=== PATIENT | male | born 1965 | race Caucasian/White ===

== ENCOUNTER 2017-12-21 11:22 | Inpatient (IN) | payer OTHER ==
[~2017-12-21] VITALS: Ht 177.8 cm; Wt 75.6 kg
[2017-12-21] VITALS (16 sets, daily range): BP systolic 113–133; BP diastolic 53–85; Ht 177.8 cm; Wt 75.6 kg
--- NOTE | ~2017-12-21 | HEMODYNAMI ---
PATIENT:FRANK LCUIA MEDICAL RECORD: [id number] : 61 LOCATION:[facility] ADMISSION DATE: 12/21/17 Generatedon:12/21/201712:58 Patient name: FRANK LUCIA Patient #: [id number] SSN: : 1965 Date of study: 12/21/2017 Page: Of Hemodynamic Procedure Report Patient Data Patient Demographics Procedure consent was obtained First Name: FRANK Gender: Male Last Name: REA : 1965 Patient #: [id number] Age: 52 year(s) Race: Additional ID: [id number] Contact details [address]: [address] [place] [address] [address] State: [place] City: [place] Zip code: [address] Admission Admission Data Admission Date: 12/21/2017 Admission Time: 11:22 Procedure Procedure Types Cath Procedure Diagnostic Procedure LHC LHC w/Coronaries Sedation Charges Moderate Sedation up to 30 minutes PCI Procedure AMI/SVG/WOOL SHEARER PTCA or Stent AMI-BMS/PUJA Initial Procedure Description Procedure Date Procedure Date: 12/21/2017 Procedure Start Time: 12:21 Procedure End Time: 12:53 Procedure Staff Name Function Fabiano Mendoza MD Performing Physician Rolanda Zepeda RT Monitor Lakesha Ferro RT Scrub Chante Garcia RN Nurse Procedure Data Cath Procedure Fluoroscopy Diagnostic fluoroscopy Total fluoroscopy Time: 7.1 time: 7.1 min min Diagnostic fluoroscopy Total fluoroscopy dose: dose: 1131 mGy 1131 mGy Contrast Material Contrast Material Type Amount (ml) Isovue 300 171 Entry Location Entry Primary Successful Side Size Upsize Upsize Entry Closure Succes sful Closure Location (Fr) 1 (Fr) 2 (Fr) Remarks Device Remarks Femoral Right 6 Fr Exoseal artery Short Estimated blood loss: 5 ml Diagnostic catheters Device Type Used For End Catheter Placement MULTIPACK JL 4.0 5Fr Left Coronary catheter Angiography MULTIPACK 3DRC 5Fr Right Coronary catheter Angiography MULTIPACK Pigtail 5 Fr LV Angiography catheter Procedure Complications No complications Procedure Medications Medication Administration Route Dosage Benadryl I.V. 50 mg Oxygen NC 2 l/min Lidocaine 2% added to field 20 Heparin Flush Bag added to field 2 bags (1000units/500ml NS) 0.9% NaCl I.V. 100 ml/hr Versed I.V. 1 mg Fentanyl I.V. 50 mcg Versed I.V. 1 mg Fentanyl I.V. 50 mcg Versed I.V. 1 mg Heparin Bolus I.V. 7500 units Nitroglycerin IC/IA I.C. 100 mcg Versed I.V. 1 mg Integrilin (Bolus I.V. 6.8 ml 2mg/ml) Fentanyl I.V. 50 mcg Fentanyl I.V. 50 mcg Brilinta P.O. 180 mg Hemodynamics Rest Heart Rate: 66 (bpm) Pressure Samples Time Site Value (mmHg) Purpose Heart Use Rate(bpm) 12:46 LV 138/-12,9 Snapshot 87 Gradients Valve Time Site Site Mean SEP/DFP Peak To Heart Use 1 2 (mmHg) (sec/min) Peak Rate (mmHg) (bpm) Aortic 12:47 LV AO 87 Snapshots Pre Cath Intra NCS Post Cath Vital Signs Time Heart Resp SPO2 etCO2 NIBP (mmHg) Rhythm Pain Status Sedation Rate (ipm) (%) (mmHg) Level (bpm) 12:14:37 62 13 99 33.8 156/93(116) NSR w/ ST 5 (11) , 10(A) Elevation Very distressing 12:19:24 58 14 100 21.8 154/92(124) NSR w/ ST 5 (11) , 10(A) Elevation Very distressing 12:24:06 72 14 100 32.4 147/87(115) NSR w/ ST 0 (11) , No 9(A) Elevation pain 12:28:51 79 14 99 40.6 151/85(126) NSR w/ ST 0 (11) , No 9(A) Elevation pain 12:33:36 91 15 100 41.4 143/86(98) NSR w/ ST 0 (11) , No 9(A) Elevation pain 12:38:16 90 14 100 36.9 153/103(123) NSR w/ ST 0 (11) , No 9(A) Elevation pain 12:42:59 104 13 100 33.8 141/84(111) NSR w/ ST 0 (11) , No 9(A) Elevation pain 12:47:37 86 15 100 36.8 135/87(109) NSR w/ ST 0 (11) , No 9(A) Elevation pain 12:52:20 77 14 100 38.3 133/83(107) NSR w/ ST 0 (11) , No 10(A) Elevation pain Medications Time Medication Route Dose Verified Delivered Reason Notes Effectiveness by by 12:14:37 Benadryl I.V. 50 mg Fabiano Buffie used for Vipin Garcia RN procedure 12:16:37 Oxygen NC 2 Fabiano Buffie used for l/min Vipin Garcia RN procedure 12:17:25 Lidocaine 2% added 20ml Fabiano Fabiano for local to vial Vipin Mendoza MD anesthetic field 12:17:32 Heparin Flush added 2 Fabiano Fabiano used for Bag to bags Vipin Mendoza MD procedure (1000units/500ml field NS) 12:17:39 0.9% NaCl I.V. 100 Fabiano Buffie Per physician ml/hr Vipin Garcia RN 12:18:04 Fentanyl I.V. 50 Fabiano Buffie for sedation mcg Vipin Garcia RN 12:18:58 Versed I.V. 1 mg Fabiano Buffie for sedation Vipin Garcia RN 12:22:01 Versed I.V. 1 mg Fabiano Buffie for sedation Vipin Garcia RN 12:22:04 Fentanyl I.V. 50 Fabiano Buffie for sedation mcg Vipin Garcia RN 12:27:21 Versed I.V. 1 mg Fabiano Buffie for sedation Vipin Garcia RN 12:27:33 Fentanyl I.V. 50 Fabiano Buffie for sedation mcg Vipin Garcia RN 12:28:26 Heparin Bolus I.V. 7500 Fabiano Buffie for verifi ed units Vipin Garcia RN anticoagulation with dr mendoza 12:40:31 Nitroglycerin I.C. 100 Fabiano Fabiano for IC/IA mcg Vipin Mendoza MD vasodilation 12:43:45 Integrilin I.V. 6.8 Fabiano Buffie for wasted (Bolus 2mg/ml) ml Vipin Garcia RN antiplatelet 3.2 ml therapy of vial 12:45:05 Versed I.V. 1 mg Fabiano Fabiano for sedation Vipin Mendoza MD 12:46:13 Fentanyl I.V. 50 Fabiano Sharif for sedation mcg Vipin Garcia RN 12:51:59 Brilinta P[address]O. 180 Fabiano Sharif for mg Vipin Garcia RN antiplatelet therapy Procedure Log Time Note 12:01:11 Informed consent obtained and on chart 12:01:13 Diagnostic Cath Status : Elective 12:01:38 Lakesha Ferro RT(R) sent for patient. Start room use. 12:01:39 Time tracking: Regular hours 12:01:43 Plan of Care:Hemodynamics will remain stable., Cardiac rhythm will remain stable., Comfort level will be maintained., Respiratory function will remain adequate., Patient/ family verbilizes understanding of procedure., Procedure tolerated without complication., Recovers from procedure without complications.. 12:13:33 Patient received from ED to CCL 1 Alert and oriented. Tansferred to table in Supine position. 12:13:37 Patient arrived from ED to CCL 1. Patient remains on bed/stretcher for procedure. 12:13:40 Warm blankets applied, and thaddeus hugger turned on for patient comfort. 12:13:41 Correct patient and procedure confirmed by team. 12:13:42 ECG and BP/O2 sat monitors applied to patient. 12:13:42 Vital chart was started 12:13:43 Baseline sample Acquired. 12:13:55 Rhythm: sinus rhythm , w/ ST elevation 12:13:57 Full Disclosure recording started 12:14:14 Physician arrived 12:14:14 --------ALL STOP TIME OUT------ 12:14:18 Final Timeout: patient, procedure, and site verified with staff and physician. All members of the team are in agreement. 12:14:37 Benadryl 50 mg I.V. was administered by Chante Garcia RN; used for procedure; 12:14:46 H&P Date Dictated: 12/21/2017 New H&P dictated by physician.. 12:14:47 Pre-procedure instructions explained to patient. 12:14:47 Pre-op teaching completed and patient verbalized understanding. 12:14:51 Family in waiting room. 12:14:53 Patient NPO since Breakfast. 12:14:55 Is the patient allergic to Iodine/contrast media? No. 12:14:56 Was the patient premedicated? No 12:15:02 Is patient on blood thinner?Yes 12:15:05 Patient diabetic? No. 12:15:07 Previous problem with sedation/anesthesia? No ? 12:15:28 ACC The patient was administered the following blood thiners within the last 24 hours: ACCAspirin 12:15:33 Snore? Yes 12:15:34 Sleep apnea? No 12:15:35 Deviated septum? No 12:15:36 Opens mouth fully? Yes 12:15:37 Sticks out tongue? Yes 12:15:38 Airway obstruction? No ? 12:16:06 Dentures? No ? 12:16:12 Patient pain scale 5/10 ?. 12:16:27 IV patent on arrival in right antecubital, left antecubital with 0.9% NaCl at [facility]. 12:16:31 Lab results completed and on chart. 12:16:37 Oxygen 2 l/min NC was administered by Chante Garcia RN; used for procedure; 12:17:25 Lidocaine 2% 20ml vial added to field was administered by Fabiano Mendoza MD; for local anesthetic; 12:17:32 Heparin Flush Bag (1000units/500ml NS) 2 bags added to field was administered by Fabiano Mendoza MD; used for procedure; 12:17:39 0.9% NaCl 100 ml/hr I.V. was administered by Chante Garcia RN; Per physician; 12:18:04 Fentanyl 50 mcg I.V. was administered by Chante Garcia RN; for sedation; 12:18:58 Versed 1 mg I.V. was administered by Chante Garcia RN; for sedation; 12:19:02 Right groin area was prepped with chlora-prep and draped in sterile fashion 12:19:03 Alarms reviewed by R. N. 12:19:04 Sharps counted by scrub and verified by R.N. 12:19:09 Right groin site verified by team. 12:19:12 Physical assessment completed. ASA score P 2 - A patient with mild systemic disease as per Fabiano Mendoza MD. 12:19:15 Sedation plan: IV Moderate Sedation Medication:Versed, Fentanyl 12:19:18 Use device set Femoral Dx 12:19:19 ACIST Syringe (59398) opened to sterile field. 12:19:20 Bag Decanter (2002S) opened to sterile field. 12:19:20 Medline Cath Pack ([id number]) opened to sterile field. 12:19:21 DIAGNOSTIC WIRE .035 260cm J wire (022234) opened to sterile field. 12:19:23 ACIST Hand Control (05402) opened to sterile field. 12::23 ACIST Manifold (65880) opened to sterile field. 12:19:24 DIAGNOSTIC Multipack 5Fr catheter set (PA2276) opened to sterile field. 12:19:24 Tegaderm 4 x 4 (1626W) opened to sterile field. 12::40 SHEATH 6Fr Prelude ([id number]) opened to sterile field. 12:20:05 Zero performed for pressure channel P1 12:20:14 Procedure started. 12::21 TUBING High Pressure Extension Tubing (Vipin) ([id number]) opened to sterile field. 12:21:01 Local anesthetic to right femoral artery with Lidocaine 2% by Fabiano Mendoza MD.INITIAL ACCESS ONLY 12:22:01 Versed 1 mg I.V. was administered by Chante Garcia RN; for sedation; 12:22:04 Fentanyl 50 mcg I.V. was administered by Chante Garcia RN; for sedation; 12::14 A 6 Fr Short sheath was inserted into the Right Femoral artery 12:22:20 A MULTIPACK JL 4.0 5Fr catheter was advanced over the wire and used for Left Coronary Angiography. 12:22:57 LCA angiography performed. 12:23:03 Injector settings: Ml/sec: 3, Volume: 6, 12:23:53 Catheter removed. 12:24:09 A MULTIPACK 3DRC 5Fr catheter was advanced over the wire and used for Right Coronary Angiography. 12:24:42 INFLATOR Merit BasixCompak (NL8099) opened to sterile field. 12:24:43 GUIDE 6FR XBLAD 3.5 catheter ([id number]) opened to sterile field. 12:25:22 RCA angiography performed. 12:25:24 Injector settings: Ml/sec: 3, Volume: 6, 12:25:26 Catheter removed. 12:25:27 Proceeding to intervention. 12:25:34 6 Fr xblad 3.5 guide catheter was inserted over the wire 12::21 Versed 1 mg I.V. was administered by Chante Garcia RN; for sedation; 12::33 Fentanyl 50 mcg I.V. was administered by Chante Garcia RN; for sedation; 12:: Heparin Bolus 7500 units I.V. was administered by Chante Garcia RN; for anticoagulation; verified with dr mendoza 12:28:39 WHISPER 300cm guide wire ([id number]) opened to sterile field. 12:29:00 whisper wire advanced. 12:31:11 BMW 300cm Sycamore 2 J wire ([id number]) opened to sterile field. 12:32:21 Wire advanced across lesion. 12:33:01 Inflate balloon Inflation number: 1 A EMERGE OTW 2.5 x 15 balloon ([id number]) was prepped and advanced across the Prox LAD, then inflated to 13 HONORIO for 0:10 (min:sec). 12:36:13 Balloon removed over the wire. 12:36:19 Quick combo pads placed on patients chest and back. 12:36:23 Defibrillator synced and charged to 200 Joules. 12:36:38 Quick Combo opened to sterile field. 12:38:08 Place stent Inflation Number: 2 A INTEGRITY OTW 3.0 X 30 stent ([id number]) was prepped and advanced across the Prox LAD. The stent was deployed at 14 HONORIO for 0:10 (min:sec). 12:40:31 Nitroglycerin IC/IA 100 mcg I.C. was administered by Fabiano Mendoza MD; for vasodilation; 12:41:22 Stent catheter was removed intact over wire. 12:43:45 Integrilin (Bolus 2mg/ml) 6.8 ml I.V. was administered by Chante Garcia RN; for antiplatelet therapy; wasted 3.2 ml of vial 12:44:01 Wire removed. 12:44:02 Guide catheter removed. 12:44:10 A MULTIPACK Pigtail 5 Fr catheter was advanced over the wire and used for LV Angiography. 12:45:05 Versed 1 mg I.V. was administered by Fabiano Mendoza MD; for sedation; 12:46:13 Fentanyl 50 mcg I.V. was administered by Chante Garcia RN; for sedation; 12:46:47 LV hemodynamics recorded. 12:46:48 LV gram done using SANDERS 12:46:51 Injector settings: Ml/sec: 5, Volume: 15, 12:47:13 EF : 40 % 12:48:47 Catheter removed. 12:49:32 EXOSEAL 6Fr (EX600) opened to sterile field. 12:49:43 Sheath removed intact; hemostasis achieved with Exoseal to the Right Femoral artery. 12:49:46 Procedure ended.(Physican Out) 12:49:54 Fluoroscopy time 07.10 minutes. 12:50:00 Flurop Dose total: 1131 12:50:00 Fluoroscopy dose: 1131 mGy 12:50:13 Contrast amount:Isovue 300 171ml. 12:50:15 Sharps counted by scrub and verified by R.N. 12:50:21 Insertion/operative site no bleeding no hematoma. 12:51:03 Post-op/insertion site Right Femoral artery dressed using a 4 x 4 and Tegaderm. 12:51:14 Post right femoral artery:stable 12:51:17 Post Procedure Pulses reassessed and unchanged 12:51:20 Post procedure rhythm: unchanged. 12:51:22 Estimated blood loss: 5 ml 12:51:25 Post procedure instruction explained to patient.Patient verbalizes understanding. 12:51:25 Patient needs reinforcement of post procedure teaching. 12:51:59 Brilinta 180 mg P.O. was administered by Chante Garcia RN; for antiplatelet therapy; 12:52:43 Procedure type changed to Cath procedure, Diagnostic procedure, LHC, LHC w/Coronaries, Sedation Charges, Moderate Sedation up to 30 minutes, PCI procedure, AMI/SVG/WOOL SHEARER PTCA or Stent, AMI-BMS/PUJA Initial 12:52:45 Procedure and supply charges have been captured, reviewed, submitted and are correct. 12:53:05 Procedure Complication : No complications 12:53:08 Vital chart was stopped 12:53:09 See physician's report for complete and final results. 12:53:24 Report given to CVICU. 12:53:28 Patient transfered to CVICU with Stretcher. 12:53:30 Procedure ended. 12:53:30 Full Disclosure recording stopped 12:53:38 ACC-PCI Only Patient was given prescriptions, or instructed by Fabiano Mendoza MD to start/continue the following medications upon discharge: Brilinta 12:53:40 End room use (Document Last) Intervention Summary Intervention Notes Time ActionType Lesion and Equipment Action# Pressure Duration Attributes Used 12:33:01 Inflate Prox LAD EMERGE OTW 1 13 00:10 balloon 2.5 x 15 balloon ([id number]) 12:38:08 Place stent Prox LAD INTEGRITY 2 14 00:10 OTW 3.0 X 30 stent ([id number]) Device Usage Item Name Manufacture Quantity Catalog Number Hospital Part Current Min imal Lot# / Charge Number Stock Stock Serial# Code ACIST Acist 1 75528 200044 807218 378310 20 Syringe Medical (79616) Systems Inc Bag Decanter Microtek 1 2001S 279677 47274 968328 5 (2001S) Medical Inc. Medline Cath Cardinal 1 [id number] 651341 06519 831671 5 Pack Health ([id number]) DIAGNOSTIC St Pee 1 226964 475107 853280 330551 30 WIRE .035 260cm J wire (071300) ACIST Hand Acist 1 25209 174289 996505 828027 5 Control Medical (83057) Systems Inc ACIST Acist 1 46590 224476 686001 370614 5 Manifold Medical (29257) Systems Inc DIAGNOSTIC Cardinal 1 MM0220 930064 48056 170517 30 MultipYapp Media Health 5Fr catheter set (AT2516) Tegaderm 4 x 3M 1 1626W 396403 067405 157712 5 4 (1626W) SHEATH 6Fr Merit 1 [id number] 646385 933006 816965 5 Prelude Medical ([id number]) TUBING High Merit 1 [id number] 170540 70237 818784 10 Pressure Medical Extension Tubing (Mendoza) (KP2233R) MULTIPACK JL Cardinal 1 433593 5 4.0 5Fr Health catheter MULTIPACK Cardinal 1 473875 5 3DRC 5Fr Health catheter INFLATOR Merit 1 BZ5228 368215 541612 325004 15 Merit Medical BasixCompak (EX0567) GUIDE 6FR Cardinal 1 [id number] 494484 320617 478142 10 XBLAD 3.5 Health catheter (03637993) WHISPER [place] 1 [id number] 168799 827321 480109 5 300cm guide Vascular wire (3572785HR) BMW 300cm [place] 1 [id number] 926589 048025 868640 5 Sycamore 2 Vascular J wire (6812941Q) EMERGE OTW [place] 1 [id number] 128258 428598 356743 5 [id number] 2.5 x 15 Scientific balloon ([id number]) BioscanR, INC 1 04440-064601 916898 762789 592133 5 INTEGRITY Medtronic 1 [id number] 570179 294148 3 [id number] OTW 3.0 X 30 stent ([id number]) MULTIPACK Cardinal 1 608463 5 Pigtail 5 Fr Health catheter EXOSEAL 6Fr Cardinal 1 EX600 982172 360041 381359 10 (EX600) Health Signature Audit [place] Stage Time Signature Unsigned Intra-Procedure 12/21/2017 Rolanda Zepeda 12:58:28 PM RT(R) Signatures Monitor : Rolanda Zepeda RT Signature : Date : Time : [id number] [place] [address]
[2017-12-21 11:50] LABS: BASOPHILS 0.8 % (0-2); EOSINOPHILS 3.3 % (0-7); HEMATOCRIT 40.7 % (42.0-54.0); HEMOGLOBIN 13.7 g/dL (13.5-17.5); IMMATURE GRANULOCYTES 0.2 % (0-5); LYMPHOCYTES 34.3 % (15-50); MCHC 33.7 g/dL (31.0-37.0); MCV 89.3 fL (80.0-100.0); MEAN PLATELET VOLUME 10.9 fL (7.4-10.4); NEUTROPHILS 52.4 % (40-80); PLATELET COUNT 211 10x3/uL (130-400); RBC 4.56 10x6/uL (4.20-6.10); RDW 12.7 % (11.5-14.5); WBC 4.9 10x3/uL (4.8-10.8)
[2017-12-21 12:00] LABS: APTT 27.8 SECONDS (22.8-39.4); INR 1.17 (0.85-1.17); PROTIME 14.5 SECONDS (11.6-15.0)
[2017-12-21 12:01] LABS: D-DIMER-QUANTITATIVE < 0.27 ug/mLFEU (0.20-0.54)
[2017-12-21 12:06] LABS: ALKALINE PHOSPHATASE 69 U/L (46-116); ALT (SGPT) 24 U/L (10-68); BILIRUBIN - TOTAL 0.39 mg/dL (0.2-1.3); CALC OSMOLALITY 280 mosm/kg (275-300); CALCIUM 9.5 mg/dL (8.5-10.1); CARBON DIOXIDE 31.5 mmol/L (21.0-32.0); CHLORIDE - SERUM 100 mmol/L (98-107); GLUCOSE 114 mg/dL (74-106); POTASSIUM - SERUM 4.2 mmol/L (3.5-5.1); PROTEIN - SERUM 8.1 g/dL (6.4-8.2); SODIUM 139 mmol/L (136-145); UREA NITROGEN 17 mg/dL (7-18); eGFR NON AFRICAN AMERICAN 83 mL/min (90-120)
[2017-12-21 12:21] LABS: CHOL - HDL RATIO 4.4 ratio (2.3-4.9); CHOLESTEROL, TOTAL 181 mg/dL (0-200); CKMB 3.7 U/L (0.0-3.6); CREATINE KINASE 95 UL (21-232); HDL CHOLESTEROL 41 mg/dL (32-96); LDL CHOLESTEROL 127 mg/dL (0-100); LDL-HDL RATIO 3.1 ratio (1.5-3.5); TRIGLYCERIDE 66 mg/dL (30-200)
[2017-12-21 12:22] LABS: TROPONIN-I 0.144 ng/mL (0.000-0.060)
[2017-12-21] MEDS ORDERED: ULTRAM50 MG PO (13:36)
[2017-12-21] MEDS ORDERED: ATIVAN0.5 MG PO (13:37)
[2017-12-22] VITALS (11 sets, daily range): BP systolic 101–147; BP diastolic 65–87
[2017-12-22 08:31] LABS: CALCIUM 8.8 mg/dL (8.5-10.1); CARBON DIOXIDE 26.4 mmol/L (21.0-32.0); CHLORIDE - SERUM 103 mmol/L (98-107); GLUCOSE 106 mg/dL (74-106); POTASSIUM - SERUM 4.4 mmol/L (3.5-5.1); SODIUM 139 mmol/L (136-145)
[2017-12-22 08:41] LABS: CALC OSMOLALITY 277 mosm/kg (275-300); CREATININE - SERUM 0.7 mg/dL (0.6-1.3); TROPONIN-I 18.034 ng/mL (0.000-0.060); UREA NITROGEN 12 mg/dL (7-18); eGFR NON AFRICAN AMERICAN > 90 mL/min (90-120)
[2017-12-23 00:30] VITALS: BP 97/65
[2017-12-23 04:30] VITALS: BP 100/61
[2017-12-23 08:24] VITALS: BP 107/67
[2017-12-23] MEDS ORDERED: LISINOPRIL2.5 MG PO (09:48)
[2017-12-23] MEDS ORDERED: COREG 3.1253.125 MG PO (09:48)
[2017-12-23] MEDS ORDERED: ASPIRIN81 MG PO (09:49)
[2017-12-23] MEDS ORDERED: BRILINTA90 MG PO (09:50)
[2017-12-23] MEDS ORDERED: PRAVACHOL20 MG PO (09:52)
[2017-12-23 11:12] VITALS: BP 114/59
== END 2017-12-23 11:12 | disposition home or self-care (01) | DRG 249 ==
LOC: D.CATH 11:22 → D.ER 11:22 → EDSTATUS 11:57 → D.CVICU 13:20 → D.M2 13:20
PROVIDERS: Family Medicine; Internal Medicine Cardiovascular Disease
PROC: B2111ZZ Fluoroscopy of Multiple Coronary Arteries using Low Osmolar Contrast (ICD-10-PCS; 2017-12-21)
PROC: B2151ZZ Fluoroscopy of Left Heart using Low Osmolar Contrast (ICD-10-PCS; 2017-12-21)
PROC: 02703DZ Dilation of Coronary Artery, One Artery with Intraluminal Device, Percutaneous Approach (ICD-10-PCS; principal; 2017-12-21 12:00)
PROC: 4A023N7 Measurement of Cardiac Sampling and Pressure, Left Heart, Percutaneous Approach (ICD-10-PCS; 2017-12-21 12:00)
DX: I21.09 ST elevation (STEMI) myocardial infarction involving other coronary artery of anterior wall (principal)